=== PATIENT | female | born 1945 ===

== ENCOUNTER 2018-04-02 06:04 | Day surgery (SDC) | payer MEDICARE, OTHER ==
[2018-03-28 08:10] VITALS: BMI 30.2
[2018-04-02] MEDS ORDERED: ceFAZolin IV 1 gm in Dextrose 2 GM/100 ML BAG IVPB ONE (07:22)
[2018-04-02] MEDS ORDERED: Lidocaine/Epinephrine 1% 1:100000 10 ML IJ ONE (07:23)
[2018-04-02] MEDS ORDERED: Propofol 10 mg/ml Inj (20 ML) ONE (07:53)
[2018-04-02] MEDS ORDERED: Midazolam 2 MG/2 ML VIAL ONE (07:53)
[2018-04-02] MEDS ORDERED: Rocuronium 10 mg/ml (5 ml) ONE (08:48)
[2018-04-02] MEDS ORDERED: Succinylcholine Chloride 20 mg/ml Syr (5 ml) IV ONE (08:48)
[2018-04-02] MEDS: Bupivacaine 0.25% 20 ML INJ IJ ONE ×3 (08:52→10:45)
[2018-04-02] MEDS ORDERED: Neostigmine Methylsulfate 3mg/3ml Syringe IV ONE (09:46)
--- NOTE | 2018-04-02 11:06 | PCM.SURG1 ---
Surgeon's Initial Post Op Note - Surgeon's Notes Surgeon: Eliot Odom MD Inpatient Auditor: ACOSTA Zepeda Type of Anesthesia: General Endo Pre-Operative Diagnosis: Ventral hernia. Abdominal Pain Operative Findings: Ventral Hernia. Umbilical Hernia Post-Operative Diagnosis: Ventral Hernia 2x3 cm. Umbilical Hernia 1x1 cm Operation Performed: Robotic Ventral Hernia repair with mesh. Robotic Umbilical Hernia repair with mesh. Lap B/L TAP block placement Specimen/Specimens Removed: Ventral Hernial sac and content. Umbilical hernial sac and content Estimated Blood Loss: EBL {In ML}: 10 Blood Products Given: N/A Drains Used: No Drains Post-Op Condition: Good Date of Surgery/Procedure: 04/02/18 Time of Surgery/Procedure: 11:07
[2018-04-02] MEDS ORDERED: HYDROmorphone 0.5 mg/0.5 ml ISec IVP PRN (11:15)
[2018-04-02] MEDS ORDERED: Oxycodone/Acetaminophen 5/325 mg Tab PO STA (13:13)
[2018-04-02 13:14] VITALS: BP 137/80; PULSE 77; RESP 18; TEMP 98; O2SAT 96
--- NOTE | 2018-04-14 05:53 | OP ---
PROCEDURE DATE: 04/02/2018 PREOPERATIVE DIAGNOSES: 1. Ventral hernia. 2. Morbid obesity. POSTOPERATIVE DIAGNOSES: 1. Incarcerated ventral hernia containing preperitoneal fat. 2. Umbilical hernia. 3. Morbid obesity. PROCEDURES DONE: 1. Robotic incarcerated ventral hernia repair with a mesh. 2. Robotic umbilical hernia repair with a mesh. 3. Laparoscopic bilateral transversus abdominis plane block placement. SURGEON: Joseph Odom MD FACILITY WORKER: VIRI Zepeda ANESTHESIA: General endotracheal tube anesthesia. ESTIMATED BLOOD LOSS: Around 10 mL. DRAINS: None. PATHOLOGY: Ventral hernia fat and contents and umbilical hernia fat and content were sent for the pathology. COMPLICATIONS: None. INTRAOPERATIVE FINDINGS: The patient had incarcerated ventral hernia containing preperitoneal fat. The patient had a very small umbilical hernia of approximately 2 x 1 cm size. DESCRIPTION OF PROCEDURE: On intraoperative steps, this is a 72-year-old female who was diagnosed with ventral hernia with abdominal pain. The patient was consented for the robotic ventral hernia repair with a mesh. Brought to the OR, placed supine on the operating table. After induction of the general anesthesia, the abdomen was prepped and draped in the usual sterile fashion. A left upper quadrant incision was made using the Visiport technique. The peritoneal cavity was entered. Three robotic ports were placed. Robot was brought in. Camera arm as well as arm 1 and arm 2 were docked. First, ventral hernia was identified. The patient had a large amount of fat that was incarcerated in the upper abdomen. First, hernial sac and content was reduced back into the peritoneal cavity. The defect was closed with a #1 Prolene V-Loc suture in two layers. During the further exploration, the patient was found to have another umbilical hernia of 2 x 1 cm size. The umbilical hernia of second content was also reduced. The defect was closed with #1 Prolene V-Loc suture. The umbilical hernia and the fat were sutured with a 6 cm circular mesh, and the ventral hernial defect was sutured with 9 x 7 mesh. After proper implantation of the both mesh, the procedure was converted into the laparoscopic and the laparoscopic bilateral TAP block was given. The 30:30 mL of Marcaine was injected into the transverse abdominis muscle plane block and after that, the robot was undocked. All the ports were taken out under vision. Pneumo was deflated. All the port sites were closed in two layers, the subcutaneous with 2-0 Vicryl and the skin with a 4-0 Monocryl, and a dry sterile dressing was applied. The patient tolerated the procedure well. Count of instrument and gauze was correct. There was no apparent complication. The patient was extubated in OR and sent to the postanesthesia care unit in a stable condition. Joseph Odom MD
== END 2018-04-02 16:23 | disposition home or self-care (01) ==
LOC: C.SDS 06:04
PROVIDERS: ATTEND Surgery Surgical Critical Care
DX: K43.6 Other and unspecified ventral hernia with obstruction, without gangrene (principal); K42.9 Umbilical hernia without obstruction or gangrene; E66.01 Morbid (severe) obesity due to excess calories
CPT/HCPCS: 49653; 64488; 82948; 88302; C1781; J0690; J1170; J1885; J2001; J2250; J2405; J2704; J2710; J3010

== ENCOUNTER 2018-07-22 10:49 | Outpatient (CLI) | payer MEDICARE, OTHER | END 2018-07-22 10:50 | disposition home or self-care (01) | LOC: C.RADH 10:49 | DX: M25.512 Pain in left shoulder (principal) ==